=== PATIENT | female | born 1945 | race Caucasian/White ===

== ENCOUNTER → 2016-06-11 | Outpatient (CLI) | payer MEDICARE ==
[~2016-06-11] MED LIST: ANTIVERT-DPS25 MG PO; COZAAR100 MG PO; HUMULIN 70100 UNIT/1 SQ; LOFIBRA160 MG PO; LOPRESSOR DPS50 MG PO; NITROSTAT0.4 MG SL; NORCO 10-325 T1 EACH PO; NORVASC DPS10 MG PO; PROAIR HFA8.5 GM IH; PROTONIX40 MG PO; ZOFRAN ODT4 MG PO; ZYRTEC DPS10 MG PO
== END | disposition home or self-care (01) ==
LOC: RAD.S 11:28
DX: Z12.31 Encounter for screening mammogram for malignant neoplasm of breast (principal); R92.1 Mammographic calcification found on diagnostic imaging of breast